=== PATIENT | female | born 1955 | race American Indian/Alaskan Native ===

== ENCOUNTER 2017-05-04 08:55 | Outpatient (CLI) | payer OTHER ==
--- NOTE | 2017-05-04 15:11 | XRay Report ---
XRAY RIGHT KNEE 4 THREE VIEWS: 05/04/17 CLINICAL: Right knee pain. FINDINGS: No fracture or dislocation. Medial joint space narrowing with small medial osteophytes. Mild varus deformity. The lateral joint space is normal. Small patellofemoral osteophytes. Quadriceps tendon insertion and patellar tendon insertion enthesophytes.No joint effusion.Normal soft tissues. 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 Quadriceps and patellar tendon enthesophytes.
== END 2017-05-04 08:56 | disposition home or self-care (01) ==
LOC: SPVIMAG 08:55
PROVIDERS: ATTEND Orthopaedic Surgery
DX: M17.11 Unilateral primary osteoarthritis, right knee (principal); M21.161 Varus deformity, not elsewhere classified, right knee; M76.51 Patellar tendinitis, right knee; M76.891 Other specified enthesopathies of right lower limb, excluding foot